=== PATIENT | female | born 1990 | race Caucasian/White ===

== ENCOUNTER 2018-09-09 18:13 | Emergency (ER) | payer MEDICAID, OTHER, SELFPAY ==
[~2018-09-09] VITALS: Ht 160 cm; Wt 70.8 kg
[2018-09-09 18:46] LABS: BASOPHILS # (AUTO) 0.03 x10^3/uL (0-0.1); BASOPHILS % (AUTO) 0 % (0-1); EOSINOPHILS # (AUTO) 0.18 x10^3/uL (0-0.4); EOSINOPHILS % (AUTO) 2 % (1-7); LYMPHOCYTES # (AUTO) 2.01 x10^3/uL (1-3.4); LYMPHOCYTES % (AUTO) 27 % (22-44); MD NO; MEAN CORPUSCULAR HEMOGLOBIN 30.3 pg (27.0-34.8); MEAN CORPUSCULAR HGB CONC 34.8 g/dL (32.4-35.8); MEAN CORPUSCULAR VOLUME 87.2 fL (80-100); MEAN PLATELET VOLUME 8.7 fL (7.4-10.4); MONOCYTES # (AUTO) 0.28 x10^3/uL (0.2-0.8); MONOCYTES % (AUTO) 4 % (2-9); NEUTROPHILS # (AUTO) 5.07 x10^3/uL (1.8-6.8); NEUTROPHILS % (AUTO) 67 % (42-75); PLATELET COUNT 238 x10^3/uL (130-400); RED BLOOD COUNT 4.55 x10^6/uL (3.82-5.3); RED CELL DISTRIBUTION WIDTH 13.9 % (9.6-15.2)
[2018-09-09 18:51] LABS: ALBUMIN 3.7 g/dL (3.4-5.0); ANION GAP 4 mmol/L (5-15); CALCIUM 8.5 mg/dL (8.5-10.1); CHLORIDE 110 mmol/L (98-107); CREATININE 1.13 mg/dL (0.55-1.02)
--- NOTE | 2018-09-09 19:52 | NUR ---
Assumed care of patient. Dx'd with a UTI at [facility] on Thursday. Started on Bactrim and states she is not getting any better. C/O bladder and flank pain and JUAN. Ambulated with a steady gait to restroom.
[2018-09-09] MEDS ORDERED: ONDANSETRON ODT 4 MG PO ONE (20:00)
[2018-09-09] MEDS ORDERED: IBUPROFEN 600 MG TABLET PO ONE (20:00)
[2018-09-09] MEDS ORDERED: IBUPROFEN 600 MG TABLET ONE (20:02)
[2018-09-09] MEDS ORDERED: ONDANSETRON ODT 4 MG ONE (20:02)
--- NOTE | 2018-09-09 20:13 | NUR ---
Encouraged patient to provide UA.
[2018-09-09 20:51] LABS: MICROSCOPIC AUTO
[2018-09-09 20:52] LABS: CULTURE INDICATED? NO
[2018-09-09 21:22] VITALS: BP 112/67
--- NOTE | 2018-09-09 21:36 | NUR ---
Patient/Caregiver given discharge instructions and they have confirmed that they understand the instructions. Patient ambulatory with steady gait.
== END 2018-09-09 21:37 | disposition home or self-care (01) ==
LOC: ED 20:52
DX: R10.84 Generalized abdominal pain (principal); R30.0 Dysuria; F17.200 Nicotine dependence, unspecified, uncomplicated
CPT/HCPCS: 36415; 76770; 80048; 81001; 82040; 84703; 85025; 99284; Q0162